=== PATIENT | female | born 1975 | race Caucasian/White ===

== ENCOUNTER 2022-09-13 21:52 | Emergency (ER) | payer OTHER, SELFPAY ==
[~2022-09-13] VITALS: Ht 154.9 cm; Wt 79.5 kg
[~2022-09-13 21:52] MED LIST: FERR325T27 PO; OMEP20CA12 PO
[2022-09-13] MEDS ORDERED: PERTUSS(ACELL),DIPH,TET VAC/PF 0.5 ML SYRINGE IM. ONE (23:15)
[2022-09-13] MEDS ORDERED: AMOX1TAB16 PO (23:41)
[2022-09-14 00:14] VITALS: BP 128/70
== END 2022-09-14 00:27 | disposition home or self-care (01) ==
LOC: EMS 22:00
DX: S61.452A Open bite of left hand, initial encounter (principal); Z88.0 Allergy status to penicillin; W55.01XA Bitten by cat, initial encounter; Y93.89 Activity, other specified; Y92.89 Other specified places as the place of occurrence of the external cause; Y99.8 Other external cause status
CPT/HCPCS: 90471; 90715; 99283